=== PATIENT | male | born 1995 | race Two or more races ===

== ENCOUNTER 2021-12-26 19:38 | Emergency (ER) | payer SELFPAY ==
[2021-12-26] MEDS ORDERED: Lactated Ringers 1,000 ML IV ONE (20:19)
[2021-12-26] MEDS ORDERED: Diphtheria,Pertussis(Acell),Tetanus Vaccine 0.5 ML Syringe IM ONE (20:27)
[2021-12-26] MEDS ORDERED: Lactated Ringers 1,000 ML IV SCH (20:30)
== END 2021-12-27 00:30 | disposition home or self-care (01) ==
LOC: JD.ED 19:38
DX: T75.4XXA Electrocution, initial encounter (principal); Z23 Encounter for immunization
CPT/HCPCS: 36415; 80053; 81003; 82550; 83874; 84484; 85025; 85610; 85730; 90471; 90715; 93005; 99285; J7120